=== PATIENT | female | born 1995 | race Caucasian/White ===

== ENCOUNTER 2017-11-26 17:31 | Emergency (ER) | END 2017-11-26 19:15 | disposition home or self-care (01) ==

== ENCOUNTER 2018-10-18 16:37 | Emergency (ER) | payer MEDICAID ==
[~2018-10-18] VITALS: Ht 162.6 cm; Wt 98.8 kg
[~2018-10-18 16:37] MED LIST: ACET500C5 PO; AMOX1TAB10 PO; NAPR-985 PO
[2018-10-18 16:58] VITALS: BP 123/64; PULSE 66; RESP 18; Ht 162.6 cm; Wt 98.8 kg
[2018-10-18] MEDS ORDERED: FAMOTIDINE 20 MG TAB PO STA (17:27)
[2018-10-18] MEDS ORDERED: LIDOCAINE/MYLANTA 40 ML BTL PO STA (17:27)
--- NOTE | 2018-10-18 17:28 | ERD ---
ER Documentation Chief Complaint Chief Complaint LUQ AP radiating to RUQ X 6 days HPI This is a 22-year-old female who presents with left upper quadrant pain with radiation to the right upper quadrant x6 days, has a knot-like sensation, it is associated with movement, there are no alleviating or aggravating factors. She has not had any constipation, she denies fever, she has not had urinary symptoms. No prior history of GI surgeries. ROS All systems reviewed and are negative except as per history of present illness. Medications Home Meds Active Scripts Amoxicillin/Potassium Clav (Amox-Clav 875-125 mg Tablet) 875-125 mg Tab, 1 TAB PO BID for 7 Days, #14 TAB Prov:GILA MONROY PA-C 11/26/17 Acetaminophen* (Tylophen*) 500 Mg Capsule, 1 CAP PO Q6H PRN for PAIN AND OR ELEVATED TEMP, #30 CAP Prov:GILA MONROY-C 11/26/17 Naproxen* (Naprosyn*) 500 Mg Tablet, 500 MG PO BID PRN for PAIN AND/OR INFLAMMATION, #30 TAB Prov:GILA MONROYC 11/26/17 Allergies Allergies: Coded Allergies: No Known Allergy (Unverified , 11/26/17) PMhx/Soc Hx Alcohol Use: Yes (socially) Hx Substance Use: No Hx Tobacco Use: No Physical Exam Vitals Vital Signs Date Temp Pulse Resp B/P (MAP) Pulse Ox O2 O2 Flow FiO2 Time Delivery Rate 10/18/18 97.5 66 18 123/64 98 16:58 (83) Physical Exam Const: No acute distress Head: Atraumatic Eyes: Normal Conjunctiva ENT: Normal External Ears, Nose and Mouth. Neck: Full range of motion. No meningismus. Resp: Clear to auscultation bilaterally Cardio: Regular rate and rhythm, no murmurs Abd: Soft, there is mild right upper quadrant tenderness, there is also point tenderness to left upper quadrant, there is no rebound or guarding, there is negative McBurney's point tenderness, non distended. Normal bowel sounds Skin: No petechiae or rashes Back: No midline or flank tenderness Ext: No cyanosis, or edema Neur: Awake and alert Psych: Normal Mood and Affect Result Diagram: 10/18/18 1746 5/9/19 1746 Results 24 hrs Laboratory Tests Test 10/18/18 17:46 10/18/18 17:49 White Blood Count 5.5 10^3/ul Red Blood Count 4.17 10^6/ul Hemoglobin 12.0 g/dl Hematocrit 37.1 % Mean Corpuscular Volume 89.0 fl Mean Corpuscular Hemoglobin 28.8 pg Mean Corpuscular Hemoglobin Concent 32.3 g/dl Red Cell Distribution Width 12.9 % Platelet Count 272 10^3/UL Mean Platelet Volume 9.5 fl Immature Granulocytes % 0.200 % Neutrophils % 43.3 % Lymphocytes % 41.8 % Monocytes % 11.0 % Eosinophils % 2.4 % Basophils % 1.3 % Nucleated Red Blood Cells % 0.0 /100WBC Immature Granulocytes # 0.010 10^3/ul Neutrophils # 2.4 10^3/ul Lymphocytes # 2.3 10^3/ul Monocytes # 0.6 10^3/ul Eosinophils # 0.1 10^3/ul Basophils # 0.1 10^3/ul Nucleated Red Blood Cells # 0.0 10^3/ul Urine Color YELLOW Urine Clarity SLIGHTLY CLOUDY Urine pH 7.0 Urine Specific [place] 1.018 Urine Ketones NEGATIVE mg/dL Urine Nitrite NEGATIVE mg/dL Urine Bilirubin NEGATIVE mg/dL Urine Urobilinogen NEGATIVE mg/dL Urine Leukocyte Esterase NEGATIVE Andi/ul Urine Microscopic RBC 0 /HPF Urine Microscopic WBC 1 /HPF Urine Squamous Epithelial Cells FEW /HPF Urine Hemoglobin NEGATIVE mg/dL Urine Glucose NEGATIVE mg/dL Urine Total Protein NEGATIVE mg/dl Sodium Level 142 mmol/L Potassium Level 3.8 mmol/L Chloride Level 107 mmol/L Carbon Dioxide Level 27 mmol/L Anion Gap 8 Blood Urea Nitrogen 15 mg/dl Creatinine 0.88 mg/dl Est Glomerular Filtrat Rate mL/min > 60 mL/min Glucose Level 82 mg/dl Calcium Level 9.1 mg/dl Total Bilirubin 0.5 mg/dl Direct Bilirubin 0.00 mg/dl Indirect Bilirubin 0.5 mg/dl Aspartate Amino Transf (AST/SGOT) 23 IU/L Alanine Aminotransferase (ALT/SGPT) 18 IU/L Alkaline Phosphatase 68 IU/L Total Protein 7.6 g/dl Albumin 4.2 g/dl Globulin 3.40 g/dl Albumin/Globulin Ratio 1.23 Lipase 419 U/L POC Beta HCG, Qualitative NEGATIVE Current Medications Medications Dose Sig/[place] Start Time Status Last (Trade) Ordered Route PRN Stop Time Admin Dose Reason Admin Famotidine 20 mg ONCE STAT 10/18/18 DC 10/18/18 (Pepcid) PO 17:27 10/18/18 17:39 17:28 40 ml ONCE STAT 10/18/18 DC 10/18/18 Miscellaneous PO 17:27 10/18/18 17:39 Medication 17:28 (Gi Cocktail (2)) [place] [address] Radiology Main Line: [phone] DIAGNOSTIC IMAGING REPORT Patient: KENNETH DOUGLAS : 1995 Age: 22 Sex: F MR #: [id number] DOS: 10/18/18 1727 Ordering MD: JAROD WYATT MD Location: [facility] Room/Bed: PROCEDURE: US Abdomen. CLINICAL INDICATION: abdominal pain TECHNIQUE: Multiple real-time images were acquired of the patient's right upper quadrant abdomen and retroperitoneum utilizing a high resolution transducer. COMPARISON: None FINDINGS: The liver demonstrates normal echogenicity. The liver is normal in size and no focal solid lesions are seen. The liver measures 14 cm in length. The portal vein is patent with normal direction of flow. No intrahepatic biliary dilatation is seen. The gallbladder is contracted. There is possible sludge within the gallbladder. There is no pericholecystic fluid or gallbladder wall thickening. The common bile duct measures 4 mm in maximal dimension. The visualized portions of the pancreas are unremarkable. The tail of the pancreas is not seen. No free fluid is identified. The right kidney is normal in size, and demonstrate normal echogenicity and cortical thickness. The right kidney measures 9.6 cm in long dimension. There is mild right-sided hydronephrosis. There are no kidney stones. RPTAT: AA IMPRESSION: The gallbladder is contracted. There is possible sludge within the gallbladder. Mild right-sided hydronephrosis. .Isaac Gomes MD, MD Date Time Electronically viewed and signed by .Isaac Gomes MD, MD on 10/18/2018 19:09 .S/ CC: JAROD WYATT MD [phone] Procedures/MDM 22-year-old female presents for evaluation of abdominal pain. On exam she has no peritoneal signs, she is very well-appearing and nontoxic, will consider biliary etiology, thus labs were obtained, as well as ultrasound of the gallbladder to further evaluate. Pain control with GI cocktail and Pepcid. 7:41 PM: Patient's lab returned, no evidence of metabolic acidosis, LFTs were within normal limits. She had a mildly elevated lipase, which was not 3 times above the upper limit, she is not vomiting, and clinically she has no signs of pancreatitis. She had noted right hydronephrosis, which she was informed of her urinalysis was negative, she may have had a history of kidney stones with a passed stone, at this time she has no evidence of infection. Ultrasound also noted: Gallbladder sludge, no evidence of cholecystitis, at this point patient is stable for discharge home, strict return precautions were given for recurrent abdominal pain, fever, migrating pain particular right lower quadrant, Departure Diagnosis: Primary Impression: Abdominal pain Abdominal location: unspecified location Qualified Codes: R10.9 - Unspecified abdominal pain Condition: Stable JAROD WYATT MD October 18, 2018 17:28
[2018-10-18] MEDS ORDERED: FAMO-96 PO (19:43)
== END 2018-10-18 20:58 | disposition home or self-care (01) ==
LOC: FTE 16:37
DX: R10.12 Left upper quadrant pain (principal)
CPT/HCPCS: 36415; 76705; 80053; 81001; 81025; 83690; 85025; Z7502; Z7610; 81003

== ENCOUNTER 2019-02-14 20:38 | Emergency (ER) | payer MEDICAID, OTHER ==
[~2019-02-14] VITALS: Ht 162.6 cm; Wt 98.2 kg
[~2019-02-14 20:38] MED LIST changes: +ACET-141 PO; +FAMO-96 PO; +IBUP-1561 PO; +METO10TA92 PO
[2019-02-14 20:50] VITALS: RESP 16; Ht 162.6 cm; Wt 98.2 kg
[2019-02-15 00:08] VITALS: BP 130/78; PULSE 87
== END 2019-02-15 00:09 | disposition home or self-care (01) ==
LOC: FTE 20:38
DX: O03.9 Complete or unspecified spontaneous abortion without complication (principal)
CPT/HCPCS: 36415; 76801; 76817; 81001; 84702; 85025; 86900; 86901; Z7502